=== PATIENT | male | born 1975 | race Caucasian/White ===

== ENCOUNTER → 2020-05-23 | Outpatient (CLI) | payer SELFPAY ==
[~2020-05-23] MED LIST: NKHM; ULTRAM50 MG PO
== END | disposition home or self-care (01) ==
LOC: COVID19 15:55
PROVIDERS: ATTEND Student in an Organized Health Care Education/Training Program
DX: Z20.822 Contact with and (suspected) exposure to COVID-19 (principal)

== ENCOUNTER 2021-09-07 12:25 | Emergency (ER) | payer OTHER ==
[~2021-09-07] VITALS: Wt 68.0 kg
[2021-09-07 13:30] LABS: BASO # 0.1 10*3/uL (0.0-0.1); BASO % 0.6 % (0.0-1.0); EOS # 0.1 10*3/uL (0.0-0.4); EOS % 0.9 % (1.0-4.0); LYMPH # 1.8 10*3/uL (1.3-4.4); LYMPH % 13.1 % (27.0-41.0); MEAN CELL VOLUME 88.4 fl (80.0-94.0); MEAN CORPUSCULAR HGB CONC 33.9 g/dl (33.0-37.0); MEAN PLATELET VOLUME 8.9 fl (9.6-12.3); MONO % 7.6 % (3.0-9.0); NEUT # 10.4 10*3/uL (2.3-7.9); NEUT % 77.4 % (47.0-73.0); PLATELET COUNT AUTOMATED 320 10*3/uL (130-400); RED BLOOD COUNT 4.64 10*6/uL (4.50-5.90); RED CELL DISTRI WIDTH 12.1 % (0-14.5); WHITE BLOOD COUNT 13.5 10*3/uL (4.8-10.8)
[2021-09-07 13:46] LABS: ALKALINE PHOSPHATASE 125 U/L (45-117); BUN 8 mg/dl (7-24); CHLORIDE 106 mmol/L (98-107); CREATININE 0.62 mg/dL (0.70-1.30); POTASSIUM 4.2 mmol/L (3.5-5.1); SGOT/AST 16 IU/L (3-35); SGPT/ALT 26 U/L (12-78); SODIUM 137 mmol/L (136-145); TOTAL PROTEIN 7.2 gm/dL (6.4-8.2)
[2021-09-07] MEDS ORDERED: AMOX-CLAV 500-1 EACH PO (14:31)
== END 2021-09-07 14:55 | disposition home or self-care (01) ==
LOC: ED 12:25
PROVIDERS: Internal Medicine
DX: J02.9 Acute pharyngitis, unspecified (principal)

== ENCOUNTER 2022-09-13 21:26 | Emergency (ER) | payer OTHER ==
[~2022-09-13] VITALS: Ht 175.2 cm; Wt 63.5 kg
[~2022-09-13 21:26] MED LIST changes: +AMOX-CLAV 500-1 EACH PO
[2022-09-13] MEDS ORDERED: AMOX-CLAV 875-1 EACH PO (22:54)
== END 2022-09-13 23:27 | disposition home or self-care (01) ==
LOC: ED 21:26
DX: S61.451A Open bite of right hand, initial encounter (principal); W54.0XXA Bitten by dog, initial encounter; Y93.89 Activity, other specified; Y92.89 Other specified places as the place of occurrence of the external cause; Y99.8 Other external cause status

== ENCOUNTER 2022-09-15 14:06 | Emergency (ER) | payer OTHER ==
[~2022-09-15] VITALS: Ht 175.2 cm; Wt 63.5 kg
[~2022-09-15 14:06] MED LIST changes: +AMOX-CLAV 875-1 EACH PO
== END 2022-09-15 15:03 | disposition home or self-care (01) ==
LOC: ED 14:06
DX: S61.451D Open bite of right hand, subsequent encounter (principal); W54.0XXD Bitten by dog, subsequent encounter